=== PATIENT | female | born 1955 | race Caucasian/White ===

== ENCOUNTER 2018-12-25 05:50 | Day surgery (SDC) | payer OTHER ==
[~2018-12-25] VITALS: Ht 165.1 cm; Wt 78.9 kg
[2018-12-25] MEDS ORDERED: CEFAZOLIN SOD 1 GM in D5W 50 ML IV ONE (07:00)
[2018-12-25] MEDS ORDERED: BUPIVACAINE /PF 0.25% 30 ML VIAL INJ ONE (11:21)
[2018-12-25] MEDS ORDERED: LR 1,000 ML IV.SOLN IV ONE (11:21)
[2018-12-25] MEDS ORDERED: fentaNYL CITRATE/PF 100 MCG/2 ML AMP IVP ONE (11:21)
[2018-12-25] MEDS ORDERED: SEVOFLURANE 15 MIN GAS INH ONE (11:21)
[2018-12-25] MEDS ORDERED: ROCURONIUM BROMIDE 10 MG/ML (ZEMURON) IV ONE (11:21)
[2018-12-25] MEDS ORDERED: PROPOFOL 200MG/ 20ML VIAL (DIPRIVAN) IV ONE (11:21)
[2018-12-25] MEDS ORDERED: KETOROLAC TROMETHAMINE 30 MG VIAL IVP ONE (11:21)
[2018-12-25] MEDS ORDERED: NS IRRIG SOLN 1000 ML IR ONE (11:21)
[2018-12-25] MEDS ORDERED: METHYLENE BLUE 1 ML AMPUL INJ ONE (11:21)
[2018-12-25] MEDS ORDERED: MIDAZOLAM HCL 5 MG/5 ML VIAL IVP ONE (11:21)
[2018-12-25] MEDS ORDERED: D5/0.45 NS 1,000 ML IV SCH (12:48)
[2018-12-25] MEDS ORDERED: HYDROmorphone 1 MG INJ. 1 MG/ML AMPUL IVP PRN (13:00)
[2018-12-25] MEDS ORDERED: HYDROcodone/ACETAMIN 5-325 MG TAB (NORCO/ VICODIN) PO PRN ×2 (13:00)
[2018-12-25 13:48] VITALS: BP_SYST 133
== END 2018-12-25 14:50 | disposition home or self-care (01) ==
LOC: SDS 05:50 → SMU 05:50 → EDSTATUS 10:30 → SDS 14:50
PROVIDERS: ATTEND Colon & Rectal Surgery
DX: C50.912 Malignant neoplasm of unspecified site of left female breast (principal); M54.12 Radiculopathy, cervical region; F32.9 Major depressive disorder, single episode, unspecified; K21.9 Gastro-esophageal reflux disease without esophagitis; Z79.899 Other long term (current) drug therapy
CPT/HCPCS: 19081; 19301; 38525; 38900; 78195; 88305; 88307; A9541; J0690; J7060; J7120; J1885; J2250; J2704; J3010; J3490; Q9968